=== PATIENT | female | born 2000 | race Caucasian/White ===

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

== ENCOUNTER 2021-01-22 15:05 | Emergency (ER) | payer MEDICAID ==
[2021-01-22] MEDS ORDERED: Ketorolac 60 MG/2 ML SDV IM ONE (15:39)
--- NOTE | 2021-01-22 15:43 | EDM.PDOC ---
ED HPI GENERAL MEDICAL PROBLEM - General Chief Complaint: Upper Extremity Injury/Pain Stated Complaint: RT SHOULDER PAIN Time Seen by Provider: 01/22/21 15:18 Source of Information: Reports: Patient, RN Notes Reviewed History Limitations: Reports: No Limitations - History of Present Illness INITIAL COMMENTS - FREE TEXT/NARRATIVE: Patient is a 20-year-old female who presents to the ED for evaluation of her right shoulder injury. Patient notes that on Friday, she was having her boyfriend help her stretch, when she felt a shift in her right shoulder, she has been having pain ever since then along with some swelling. She notes that it seems to radiate up to her upper back and neck she has numbness and tingling at times, but when she moves her arm, it seems to make the numbness and tingling go away. The patient states that she has been using ibuprofen and it does not seem to be helping. She notes that she cannot move the arm much at all without quite a bit of pain. Abduction of the arm seems to be the worst movement for her. She is having no fevers or chills, cough or shortness of breath, nausea/vomiting/diarrhea. She denies any chance of at today's visit. She was concerned about the possibility of having dislocated her shoulder. Right Shoulder Pain Score (Numeric/FACES): 10 - Related Data Allergies Allergy/AdvReac Type Severity Reaction Status Date / Time No Known Allergies Allergy Verified 01/22/21 15:22 Home Meds: Home Meds Fexofenadine HCl [Arin Allergy] 60 mg PO DAILY PRN 01/22/21 [History] Naproxen [Naprosyn] 500 mg PO Q12HR #14 tab 01/22/21 [Rx] Orphenadrine [Norflex] 100 mg PO BID PRN #14 tab 01/22/21 [Rx] Past Medical History - Past Health History Medical/Surgical History: Denies Medical/Surgical History HEENT History: Reports: None Cardiovascular History: Reports: None Respiratory History: Reports: None Gastrointestinal History: Reports: None Genitourinary History: Reports: None 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 TODDLER 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 History: irrregular periods Musculoskeletal History: Reports: Fracture Neurological History: Reports: Headaches, Chronic, Seizure 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 Social & Family History - Family History Family Medical History: No Pertinent Family History - Tobacco Use Tobacco Use Status *Q: Current Every Day Tobacco User Years of Tobacco use: 2 Packs/Tins Daily: 1 - Caffeine Use Caffeine Use: Reports: Tea - Recreational Drug Use Recreational Drug Use: Yes Drug Use in Last 12 Months: Yes Recreational Drug Type: Reports: Marijuana/Hashish Recreational Drug Use Frequency: Weekly - Living Situation & Occupation Living situation: Reports: Single, with Family (Sister + sister's fianc) Occupation: Unemployed Review of Systems - Review of Systems Review Of Systems: Comprehensive ROS is negative, except as noted in HPI. ED EXAM, GENERAL - Physical Exam Exam: See Below Exam Limited By: No Limitations General Appearance: Alert, WD/WN, No Apparent Distress Head: Atraumatic, Normocephalic Neck: Normal Inspection, Supple, Non-Tender, Full Range of Motion Respiratory/Chest: No Respiratory Distress, Lungs Clear, Normal Breath Sounds, No Accessory Muscle Use, Chest Non-Tender Cardiovascular: Normal Peripheral Pulses, Regular Rate, Rhythm, No Edema Peripheral Pulses: 2+: Radial (L), Radial (R) GI/Abdominal: Normal Bowel Sounds, Soft, Non-Tender, No Distention, No Mass Extremities: Normal Inspection, Normal Capillary Refill, Limited Range of Motion (of right arm d/t pain) Neurological: Alert, Oriented, Normal Cognition, No Motor/Sensory Deficits Psychiatric: Normal Affect, Normal Mood Skin Exam: Warm, Dry, Intact, Normal Color, No Rash Course - Vital Signs Last Recorded V/S: Last Vital Signs Temp 97.1 F 01/22/21 15:19 Pulse 898 H 01/22/21 15:19 Resp 17 01/22/21 15:19 BP 129/91 H 01/22/21 15:19 Pulse Ox 95 01/22/21 15:19 - Orders/Labs/Meds Orders: Active Orders 24 hr Category Date Time Status Shoulder Comp Rt [CR] Stat Exams 01/22/21 15:33 Ordered Meds: Medications Discontinued Medications Generic Name Dose Route Start Last Admin Trade Name Jose Miguel PRN Reason Stop Dose Admin Ketorolac Tromethamine 60 mg 01/22/21 15:39 01/22/21 15:45 Ketorolac 60 Mg/2 Ml Sdv IM 01/22/21 15:40 60 mg ONETIME ONE Administration - Re-Assessments/Exams Free Text/Narrative Re-Assessment/Exam: 01/22/21 15:42 Patient presents to the ED for her right shoulder injury, we will get x-rays for initial evaluation. On exam there is no obvious deformity noted. Likely because she could have just strained a muscle causing spasm. Have ordered IM Toradol for initial management. 01/22/21 16:37 X-ray has been performed, and demonstrates no acute fracture or other bony abnormalities, joint does appear to be within place. Official radiology read is pending but the images were reviewed by myself and Dr. Mckinney, and he does agree. We will go ahead and get the patient home with an arm sling, and have her do range of motion exercises a few times a day have her follow-up with her primary care provider in a week or so time if things do not seem to be getting much better. Departure - Departure Time of Disposition: 16:38 Disposition: Home, Self-Care 01 Condition: Good Clinical Impression: Right shoulder pain Qualifiers: Chronicity: acute Qualified Code(s): M25.511 - Pain in right shoulder - Discharge Information *PRESCRIPTION DRUG MONITORING PROGRAM REVIEWED*: No *COPY OF PRESCRIPTION DRUG MONITORING REPORT IN PATIENT JACKIE: No Instructions: Shoulder Pain, [id number] Referrals: PCP,None [Primary Care Provider] - Forms: ED Department Discharge Additional Instructions: You were seen in this ER for your right shoulder injury/pain. X-ray was taken at this visit, and demonstrates no acute fracture or other bony abnormalities, your shoulder is not out of joint. You were given a sling for ongoing management of your shoulder pain, please use this as much as possible over the next few days to help provide pain relief to your shoulder. You will need to take your arm out of the sling a few times a day, and do range of motion exercises, to help prevent frozen shoulder. You were given a prescription for Naprosyn, a anti-inflammatory for pain management, 1 tablet every 12 hours for ongoing pain relief. You were given a prescription for Norflex or orphenadrine, a muscle relaxer, for suspected muscle spasm in the area. You may take 1 tablet 2 times a day as needed for further muscle spasm, please note this medicine can make you a little sleepy, so you might want to try taking this at nighttime only to see how this medicine affects you. This medication was electronically sent to the [facility] located on [address]. Follow-up with your regular care provider in a week to 10 days time if things do not seem to be getting much better, so they can refer you on for further imaging and/or PT if necessary. Please return to the ER at any time if symptoms change or worsen. Sepsis Event Note (ED) - Evaluation Sepsis Screening Result: No Definite Risk - Focused Exam Vital Signs: Vital Signs Temp Pulse Resp BP Pulse Ox 01/22/21 15:19 97.1 F 898 H 17 129/91 H 95 - My Orders Last 24 Hours: My Active Orders 01/22/21 15:33 Shoulder Comp Rt [CR] Stat - Assessment/Plan Last 24 Hours: My Active Orders 01/22/21 15:33 Shoulder Comp Rt [CR] Stat
--- NOTE | 2021-01-23 11:37 | CR ---
Right shoulder: 3 views of the right shoulder were obtained. Comparison: No prior shoulder study is available. Acromioclavicular and glenohumeral joints appear within normal limits. No acute fracture, dislocation or other bony abnormality is appreciated. Impression: 1. No abnormality is appreciated on 3 view right shoulder study. Diagnostic code #1
== END 2021-01-22 16:50 | disposition home or self-care (01) ==
LOC: JD.ED 15:05
DX: M25.511 Pain in right shoulder (principal); Z72.0 Tobacco use
CPT/HCPCS: 73030; 96372; 99283; J1885

== ENCOUNTER 2021-02-06 10:49 | Emergency (ER) | payer MEDICAID ==
[2021-02-06] MEDS ORDERED: LORazepam 2 MG/ML SDV IM ONE (11:22)
[2021-02-06] MEDS ORDERED: Ondansetron 4 MG Tab.DIS PO ONE (11:26)
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
== END 2021-02-06 12:28 | disposition home or self-care (01) ==
LOC: JD.ED 10:49
DX: F41.9 Anxiety disorder, unspecified (principal); F43.0 Acute stress reaction; Z72.0 Tobacco use
CPT/HCPCS: 96372; 99283; A9270; J2060

== ENCOUNTER 2022-03-28 09:23 | Emergency (ER) | payer SELFPAY ==
[2022-03-28] MEDS ORDERED: LORazepam 1 MG Tab PO ONE (10:00)
[2022-03-28] MEDS ORDERED: Ondansetron 4 MG Tab.DIS PO ONE (10:51)
[2022-03-28 11:30] LABS: ESTIMATED GFR > 60 mL/min (>60)
[2022-03-28] MEDS ORDERED: Potassium Chloride 20 MEQ Tab.ER PO ONE (12:31)
== END 2022-03-28 13:00 | disposition home or self-care (01) ==
LOC: JD.ED 09:23
DX: F41.9 Anxiety disorder, unspecified (principal); Z88.8 Allergy status to other drugs, medicaments and biological substances
CPT/HCPCS: 36415; 80053; 84703; 85025; 99283; A9270

== ENCOUNTER 2022-12-22 13:18 | Emergency (ER) | payer SELFPAY ==
[2022-12-22] MEDS ORDERED: Sodium Chloride 0.9% 10 ML Syringe FLUSH PRN (13:33)
[2022-12-22] MEDS ORDERED: Ondansetron 4 MG/2 ML SDV IVPUSH ONE (13:34)
[2022-12-22 14:26] LABS: ESTIMATED GFR 107 mL/min (>60)
[2022-12-22] MEDS ORDERED: Dicyclomine 10 MG Cap PO ONE (14:39)
[2022-12-22] MEDS ORDERED: Ketorolac 30 MG/ML SDV IVPUSH ONE (14:44)
== END 2022-12-22 15:42 | disposition home or self-care (01) ==
LOC: JD.ED 13:18
DX: R10.30 Lower abdominal pain, unspecified (principal); R10.2 Pelvic and perineal pain; R11.2 Nausea with vomiting, unspecified; Z88.8 Allergy status to other drugs, medicaments and biological substances; Z72.0 Tobacco use
CPT/HCPCS: 36415; 80053; 81001; 81025; 85025; 86140; 96374; 96375; 99284; A9270; J1885; J2405; J3490

== ENCOUNTER 2023-07-20 05:15 | Emergency (ER) | payer MEDICAID ==
[2023-07-20] MEDS ORDERED: Lactated Ringers 1,000 ML IV ONE (05:45)
[2023-07-20] MEDS ORDERED: Ondansetron 4 MG/2 ML SDV IVPUSH ONE (05:45)
[2023-07-20 06:07] LABS: BASOPHILS ABSOLUTE AUTO 0.1 K/mm3 (0.0-0.2); BASOPHILS PERCENT AUTO 0.8 % (0.0-1.0); EOSINOPHILS ABSOLUTE AUTO 0.1 K/mm3 (0.0-0.4); EOSINOPHILS PERCENT AUTO 0.9 % (0.0-6.0); HEMATOCRIT 44.1 % (37.0-47.0); HEMOGLOBIN 15.1 gm/dl (12.0-16.0); IMMATURE GRAN ABSOLUTE AUTO 0.03 K/mm3 (0.00-0.05); IMMATURE GRAN PERCENT AUTO 0.4 % (0.0-0.4); LYMPHOCYTES ABSOLUTE AUTO 2.3 K/mm3 (1.0-4.8); LYMPHOCYTES PERCENT AUTO 29.3 % (24.0-44.0); MEAN CORPUSCULAR HEMOGLOBIN 31.3 pg (28.0-32.0); MEAN CORPUSCULAR HGB CONC 34.2 g/dl (32.0-36.0); MEAN CORPUSCULAR VOLUME 91.5 fl (83.0-99.0); MEAN PLATELET VOLUME 11.1 fl (9.4-12.3); MONOCYTES ABSOLUTE AUTO 0.7 K/mm3 (0.0-0.8); MONOCYTES PERCENT AUTO 8.7 % (0.0-8.0); NEUTROPHILS ABSOLUTE AUTO 4.7 K/mm3 (1.8-7.7); NEUTROPHILS PERCENT AUTO 59.9 % (41.0-71.0); PLATELET COUNT,PLT 199 K/mm3 (150-400); RED BLOOD CELL COUNT 4.82 M/mm3 (4.10-5.30); WHITE BLOOD CELL COUNT,WBC 7.89 K/mm3 (3.9-11.3)
[2023-07-20 06:16] LABS: BARBITURATE SCREEN,URINE NEGATIVE (CUTOFF=200); BENZODIAZEPINES SCREEN,URINE PRESUMPTIVE POSITIVE (CUTOFF=150); BUPRENORPHINE SCREEN,URINE NEGATIVE (CUTOFF=10); METHADONE SCREEN, URINE NEGATIVE (CUTOFF=200); METHAMPHETAMINES SCREEN, URINE PRESUMPTIVE POSITIVE (CUTOFF=500); OXYCODONE SCREEN,URINE NEGATIVE (CUT0FF=100); PROPOXYPHENE SCREEN,URINE NEGATIVE (CUTOFF=300); THC SCREEN,URINE 20 NG/ML PRESUMPTIVE POSITIVE (CUTOFF=50)
[2023-07-20 06:19] LABS: AMPHETAMINES SCREEN, URINE NEGATIVE (CUTOFF=500)
[2023-07-20 06:33] LABS: A/G RATIO 1.2 (1-2); ALBUMIN 4.7 g/dl (3.4-5.0); ANION GAP 12.7 (5-15); BILIRUBIN TOTAL 0.6 mg/dL (0.2-1.0); CALCIUM 9.3 mg/dL (8.5-10.1); CREATININE 0.8 mg/dL (0.55-1.02); EST CRCL DRUG DOSING (CG) 92.02 mL/min; POTASSIUM,K 3.7 mEq/L (3.5-5.1); PROTEIN TOTAL,TP 8.7 g/dl (6.4-8.2)
== END 2023-07-20 08:15 | disposition home or self-care (01) ==
LOC: JD.ED 05:15
DX: R11.2 Nausea with vomiting, unspecified (principal); F17.210 Nicotine dependence, cigarettes, uncomplicated; Z79.899 Other long term (current) drug therapy; Z88.8 Allergy status to other drugs, medicaments and biological substances
CPT/HCPCS: 36415; 80053; 80306; 80307; 84703; 85025; 96361; 96374; 99284; J2405; J7120

== ENCOUNTER 2024-08-20 18:19 | Emergency (ER) | payer MEDICAID ==
[2024-08-20] MEDS ORDERED: Sodium Chloride 0.9% 10 ML Syringe FLUSH PRN (19:28)
[2024-08-20] MEDS: Sodium Chloride 0.9% 1,000 ML IV SCH ×2 (19:52→21:20)
[2024-08-20] MEDS: Ondansetron 4 MG/2 ML SDV IVPUSH ONE (19:52)
[2024-08-20 20:15] LABS: A/G RATIO 1.2 (1-2); ALBUMIN 4.5 g/dl (3.4-5.0); ANION GAP 18.4 (5-15); BILIRUBIN TOTAL 0.7 mg/dL (0.2-1.0); BUN/CREATININE RATIO 11.4 (14-18); CREATININE 0.7 mg/dL (0.55-1.02); EST CRCL DRUG DOSING (CG) 99.7 mL/min; POTASSIUM,K 3.4 mEq/L (3.5-5.1); PROTEIN TOTAL,TP 8.3 g/dl (6.4-8.2)
== END 2024-08-20 22:58 | disposition home or self-care (01) ==
LOC: JD.ED 18:19
DX: O21.9 Vomiting of pregnancy, unspecified (principal); O99.281 Endocrine, nutritional and metabolic diseases complicating pregnancy, first trimester; E86.0 Dehydration; Z3A.08 8 weeks gestation of pregnancy; Z79.899 Other long term (current) drug therapy; Z88.8 Allergy status to other drugs, medicaments and biological substances
CPT/HCPCS: 36415; 80053; 96361; 96374; 99284-25; J2405; J7030

== ENCOUNTER 2025-03-26 20:55 | Inpatient (IN) | payer MEDICAID ==
[~2025-03-26 20:55] MED LIST: Lidocaine 1% 10 ML MDV ONE; Lidocaine 1.5% with EPINEPHrine 1:200,000 5 ML Amp ONE
[2025-03-26] MEDS ORDERED: Ondansetron 4 MG/2 ML SDV IVPUSH PRN (21:30)
[2025-03-26] MEDS ORDERED: Nalbuphine 10 MG/1 ML Vial IVPUSH PRN (21:30)
[2025-03-26] MEDS ORDERED: Sodium Chloride 0.9% 10 ML Syringe FLUSH PRN (21:30)
[2025-03-26] MEDS: Lactated Ringers 1,000 ML IV SCH (21:50)
[2025-03-26 21:51] LABS: BASOPHILS PERCENT AUTO 0.1 % (0.0-1.0); EOSINOPHILS ABSOLUTE AUTO 0.1 K/mm3 (0.0-0.4); EOSINOPHILS PERCENT AUTO 0.3 % (0.0-6.0); HEMATOCRIT 32.2 % (37.0-47.0); HEMOGLOBIN 10.9 gm/dl (12.0-16.0); IMMATURE GRAN PERCENT AUTO 0.5 % (0.0-0.4); LYMPHOCYTES PERCENT AUTO 9.4 % (24.0-44.0); MEAN CORPUSCULAR HEMOGLOBIN 29.9 pg (28.0-32.0); MEAN CORPUSCULAR HGB CONC 33.9 g/dl (32.0-36.0); MEAN CORPUSCULAR VOLUME 88.2 fl (83.0-99.0); MEAN PLATELET VOLUME 12.6 fl (9.4-12.3); MONOCYTES ABSOLUTE AUTO 1.8 K/mm3 (0.0-0.8); MONOCYTES PERCENT AUTO 8.3 % (0.0-8.0); NEUTROPHILS ABSOLUTE AUTO 17.2 K/mm3 (1.8-7.7); NEUTROPHILS PERCENT AUTO 81.4 % (41.0-71.0); PLATELET COUNT,PLT 175 K/mm3 (150-400); RED BLOOD CELL COUNT 3.65 M/mm3 (4.10-5.30); WHITE BLOOD CELL COUNT,WBC 21.11 K/mm3 (3.9-11.3)
[2025-03-26 22:26] LABS: SLIDE REVIEW ABNORMAL SMEAR
[2025-03-26] MEDS ORDERED: ePHEDrine 50 MG/ML SDV IVPUSH PRN (22:26)
[2025-03-26] MEDS ORDERED: diphenhydrAMINE 50 MG/ML SDV IVPUSH PRN (22:26)
[2025-03-27 00:10] LABS: CREATININE 0.6 mg/dL (0.55-1.02); EST CRCL DRUG DOSING (CG) 115.33 mL/min; URIC ACID 3.5 mg/dL (2.6-6.0)
[2025-03-27 02:28] LABS: CREATININE,URINE RAND 54.7 mg/dL (30.0-125.0); PROTEIN,URINE RANDOM 16.9 mg/dL (0.0-11.8)
[2025-03-27] MEDS: Bupivacaine/fentaNYL/NS 100 ML Bag EPIDUR PRN (03:26)
[2025-03-27] MEDS: Midazolam 1 MG/ML 2 ML SDV IVPUSH PRN (04:23)
[2025-03-27] MEDS: Oxytocin/0.9 % Sodium Chloride 30 UNIT/500 ML BAG IV SCH (07:15)
[2025-03-27] MEDS: Lidocaine 1% 50 ML MDV INJECT PRN (07:20)
[2025-03-27] MEDS ORDERED: Simethicone 80 MG Tab.Chew PO PRN (08:12)
[2025-03-27] MEDS ORDERED: Acetaminophen 325 MG Tab PO PRN (08:12)
[2025-03-27] MEDS ORDERED: Oxytocin/0.9 % Sodium Chloride 30 UNIT/500 ML BAG IV SCH (08:12)
[2025-03-27] MEDS ORDERED: Magnesium Hydroxide 400 MG/5 ML Susp 30 ML Cup PO PRN (08:12)
[2025-03-27] MEDS ORDERED: Hydrocortisone Acetate 25 MG Supp RECTAL PRN (08:12)
[2025-03-27] MEDS: Prenatal Multivitamin with Calcium/Folic Acid/Iron Tab PO SCH (09:36)
[2025-03-27] MEDS: Ibuprofen 600 MG Tab PO SCH (09:36)
[2025-03-27] MEDS: Witch Hazel Medicated Pads 40/Jar TOP PRN (10:57)
[2025-03-27] MEDS: Benzocaine/Menthol 20%-0.5% Spray 78 GM Cannister TOP PRN (10:57)
[2025-03-27] MEDS: Measles, Mumps & Rubella Vaccine 0.5 ML SDV SUBCUT ONE (10:58)
[2025-03-28] MEDS: Docusate Sodium 100 MG Cap PO PRN (08:32)
== END 2025-03-29 12:30 | disposition home or self-care (01) | DRG 807 ==
LOC: JD.OBCHECK 20:55 → JD.OB 20:57 → JD.OBCHECK 21:43 → OBSVTOIN 03-27 07:13 → JD.OB 03-27 07:14
PROVIDERS: ADMIT Obstetrics & Gynecology; ATTEND Obstetrics & Gynecology
PROC: 0KQM0ZZ Repair Perineum Muscle, Open Approach (ICD-10-PCS; principal; 2025-03-27)
PROC: 10E0XZZ Delivery of Products of Conception, External Approach (ICD-10-PCS; principal; 2025-03-27)
PROC: 3E0R3BZ Introduction of Anesthetic Agent into Spinal Canal, Percutaneous Approach (ICD-10-PCS; principal; 2025-03-27)
DX: O14.94 Unspecified pre-eclampsia, complicating childbirth (principal); Z37.0 Single live birth; Z3A.38 38 weeks gestation of pregnancy; Z79.899 Other long term (current) drug therapy; O70.1 Second degree perineal laceration during delivery; O99.324 Drug use complicating childbirth; F12.90 Cannabis use, unspecified, uncomplicated; F17.290 Nicotine dependence, other tobacco product, uncomplicated; Z88.8 Allergy status to other drugs, medicaments and biological substances; Z98.890 Other specified postprocedural states
CPT/HCPCS: 36415; 51702; 59025; 59409; 82565; 82570; 83615; 84156; 84450; 84460; 84520; 84550; 85025; 86592; A9270-GY; J2003; J2250; J3490; J7120; J7999